=== PATIENT | male | born 1965 | race Caucasian/White ===

== ENCOUNTER 2020-05-19 08:04 | Emergency (ER) | payer OTHER, SELFPAY ==
[2020-05-19 08:19] VITALS: BP 158/90; PULSE 54; RESP 158; TEMP 37.1; O2SAT 97; BMI 28.5
[2020-05-19 08:31] VITALS: O2SAT 97
--- NOTE | 2020-05-19 09:05 | ED_ITS ---
HPI - URI/Sore Throat General Chief Complaint: Upper Respiratory Symptoms Stated Complaint: covid test symptoms [id number] Time Seen by Provider: 05/19/20 08:58 Source: patient Mode of arrival: ambulatory Limitations: no limitations History of Present Illness HPI Narrative: 54-year-old male with no significant past medical history presenting to ED for COVID-19 testing. Reports sore throat x3 days and subjective fever. Denies cough, chest pain, shortness of breath, chills, recent travel, COVID-19 exposure MD elicited complaint: fever ( subjective) Onset (ago): day(s) (3) Consistency: constant Severity: mild Associated symptoms: denies other symptoms Related Data Allergies Allergy/AdvReac Type Severity Reaction Status Date / Time penicillin V Allergy Unknown Verified 10/03/13 00:00 Penicillins [PCN] Allergy Unknown ANAPHYLAXIS Unverified 05/01/20 17:40 Review of Systems Review of Systems: Yes all other systems are reviewed and are negative Constitutional: Constitutional: Reports as per HPI, Denies body ache(s), Denies chills, Reports fever(s) (subjective) and Denies headache(s) Eyes: Eyes: Reports as per HPI ENT: Reports system reviewed and no additional complaints, except as documented, Reports as per HPI, Denies headache(s), Denies nose pain and Reports sore throat Cardiovascular: Cardiovascular: Reports as per HPI, Denies chest pain, Denies irregular heart rhythm and Denies dyspnea Respiratory: Respiratory: Reports as per HPI, Reports no additional respiratory complaints and Denies dyspnea Gastrointestinal: Gastrointestinal: Reports as per HPI Neurologic: Denies headache(s) [facility] Past Medical History Attestation statement: The following information was validated with the patient. Medical History (Updated 05/19/20 @ 09:17 by YULIANA Ch) Hypertension Social History Social History Smoking Status: Never smoker Advance Directives: No Advance Directives Information Provided: No Physical Exam Vital Signs and I&O and Narrative: Vital Signs and I&O: Vital Signs Temp 98.7 F 05/19/20 08:19 Pulse 54 05/19/20 08:19 Resp 158 H 05/19/20 08:19 BP 158/90 H 05/19/20 08:19 Pulse Ox 97 05/19/20 08:31 Intake & Output 05/18/20 05/19/2005/19/20 18:59 06:59 18:59 Weight 95.254 kg Body Mass Index 28.5 Const: General: cooperative and healthy appearing Nutritional Appearance: average body habitus Orientation/consciousness: patient oriented x3 Limitations: no limitations HENMT: Head: Yes normal to inspection General nose exam: Normal external nose present Face and sinus: Yes normal facial exam Mouth: Normal oral and palatal mucosa present, moist mucous membranes abnormal, no drooling and no muffled voice Throat: Yes posterior oropharynx normal, Yes uvula midline, No abnormal tonsil and No peritonsillar mass Eyes: General: appearance normal, both eyes and all related structures Neck: Neck: Yes normal visual inspection Resp: Effort & Inspection: normal respiratory effort and able to speak in complete sentences Neuro: General: patient oriented x3 MDM - URI/Sore Throat Differential Diagnosis Differential diagnosis: Likely upper respiratory infection and viral infection Medical Records Attestation: I reviewed the patient's medical records. Discharge Plan Discharge Clinical Impression: Pharyngitis, Upper respiratory infection Patient Disposition: Home, Self-Care Instructions: COVID-19 (Coronavirus Disease 2019) (ED), Cold Symptoms (ED) Additional Instructions: Based on your symptoms and history we have sent a COVID-19. Although your RESULT IS PENDING at this time. RESULTS should return within 72 hours. At this time you will be contacted with either NEGATIVE OR POSITIVE results. -Please wait until we contact you for your results. At this time you will be okay for discharge. Please plan for self quarantine for up to 14 days. Do not expose yourself to others. You may not go to work. If testing does come back negative you may return to activities as long as you are no longer having any symptoms for at least 3 days. Please continue to follow cold instructions and wash your hands frequently. You may take Tylenol as directed on the bottle for pain or fever. Patient seen in the emergency department on 02/08/2020 and should be excused from work until negative test results AND until 72 hours without any symptoms AND at least 10 days have passed since symptoms first appeared or since last exposure to COVID-19 positive patient CDC Guidelines for home isolation: - Stay away from others - WEAR A MASK if you are sick AND STAY HOME - Cover your mouth and nose with a tissue when you cough or sneeze. Dispose of tissues in a lined trash can and wash your hands immediately with soap and water for at least 20 seconds. If soap and water are not available, clean hands with alcohol-based hand client associate that contains at least 60% alcohol. - Clean your hands often with soap and water for at least 20 seconds - Avoid touching your eyes, nose and mouth with unwashed hands - Do not share dishes, drinking glasses, cups, eating utensils, towels, or bedding with other people in your home. After using these items, wash them thoroughly with soap and water or put in the small parts shaper operator. - Clean high-touch surfaces in your isolation area ( sick room and bathroom) ev yojana day; let a caregiver clean and disinfect high-touch surfaces in other areas of the home. Clean the area or item with soap and water or another detergent if it is dirty. Then, use a household disinfectant. - Limit contact with pets and animals: If you must care for a pet, wash your hands before and after interacting with themBased on your symptoms and history we have sent a COVID-19. Although your RESULT IS PENDING at this time. RESULTS should return within 72 hours. At this time you will be contacted with either NEGATIVE OR POSITIVE results. -Please wait until we contact you for your results. At this time you will be okay for discharge. Please plan for self quarantine for up to 14 days. Do not expose yourself to others. You may not go to work. If testing does come back negative you may return to activities as long as you are no longer having any symptoms for at least 3 days. Please continue to follow cold instructions and wash your hands frequently. You may take Tylenol as directed on the bottle for pain or fever. Patient seen in the emergency department on 02/08/2020 and should be excused from work until negative test results AND until 72 hours without any symptoms AND at least 10 days have passed since symptoms first appeared or since last exposure to COVID-19 positive patient CDC Guidelines for home isolation: - Stay away from others - WEAR A MASK if you are sick AND STAY HOME - Cover your mouth and nose with a tissue when you cough or sneeze. Dispose of tissues in a lined trash can and wash your hands immediately with soap and water for at least 20 seconds. If soap and water are not available, clean hands with alcohol-based hand client associate that contains at least 60% alcohol. - Clean your hands often with soap and water for at least 20 seconds - Avoid touching your eyes, nose and mouth with unwashed hands - Do not share dishes, drinking glasses, cups, eating utensils, towels, or bedding with other people in your home. After using these items, wash them thoroughly with soap and water or put in the small parts shaper operator. - Clean high-touch surfaces in your isolation area ( sick room and bathroom) every day; let a caregiver clean and disinfect high-touch surfaces in other areas of the home. Clean the area or item with soap and water or another detergent if it is dirty. Then, use a household disinfectant. - Limit contact with pets and animals: If you must care for a pet, wash your hands before and after interacting with them Stand Alone Forms: Work/School Release Print Language: Grenadian
== END 2020-05-19 09:27 | disposition home or self-care (01) ==
PROVIDERS: Physician Assistant; Emergency Provider Internal Medicine
DX: J02.9 Acute pharyngitis, unspecified (principal); Z20.828 Contact with and (suspected) exposure to other viral communicable diseases
CPT/HCPCS: 36415; 87071; 87635; 99283; 99284

== ENCOUNTER 2020-11-25 07:44 | Outpatient (REF) | payer OTHER, SELFPAY ==
[2020-11-25 08:30] LABS: COVID-19 Test Negative (Negative); IDNOW Serial# 55D5AD1C
== END 2020-11-25 07:45 | disposition home or self-care (01) ==
LOC: HO.LAB 07:44
PROVIDERS: Visit Provider Internal Medicine
DX: Z20.822 Contact with and (suspected) exposure to COVID-19 (principal)
CPT/HCPCS: 36415; 87635; C9803

== ENCOUNTER 2021-03-16 10:07 | Emergency (ER) | payer OTHER, SELFPAY ==
[2021-03-16 10:47] VITALS: BP 185/109; PULSE 50; RESP 18; TEMP 36.6; O2SAT 99; BMI 29.8
--- NOTE | 2021-03-16 12:41 | ED_ITS ---
HPI - Eye Problem General Chief complaint: Eye Problems Stated complaint: eye problems Time Seen by Provider: 03/16/21 12:17 Source: patient Mode of arrival: ambulatory Limitations: no limitations History of Present Illness MD chief complaint: eye pain, eye redness and eye injury Onset (ago): hour(s) (930am) Onset description: sudden Duration: constant Location: left eye Eye Symptoms: redness and foreign body sensation Place: work Mechanism: direct trauma (dry wall hit eye) Severity: mild If Pain, Quality: burning Context: trauma Associated symptoms: none Treatments Prior to Arrival: none Related Data Previous Rx's Medication Instructions Recorded erythromycin 5 mg/gram (0.5 %) eye 0.5 inch OPHTHALMIC (EYE) BID 7 03/16/21 ointment Days #3.5 g Allergies Allergy/AdvReac Type Severity Reaction Status Date / Time penicillin V Allergy Unknown Verified 10/03/13 00:00 Penicillins [PCN] Allergy Unknown ANAPHYLAXIS Unverified 05/01/20 17:40 Review of Systems Review of Systems: Constitutional : No Fever, No Chills, HEENT: L eye pain, L eye FB sensation Cardiovascular : No Chest Pain, No SOB Respiratory : No Dyspnea Gastrointestinal : No abdominal pain Musculoskeletal : No Joint Swelling Skin : No rash, noskin laceration Neuro : No Weakness, No Numbness PMFSH Past Medical History Attestation statement: The following information was validated with the patient. Medical History Hypertension Social History Social History (Updated 03/16/21 @ 12:45 by Genevieve Tejada DO) Patient Tobacco Use Status: Tobacco use Unknown Advance Directives: Yes Advance Directives Information Provided: Yes Advance Directives on File: No Physical Exam Vital Signs: Vital Signs: Last Vital Signs Temp 98 F 03/16/21 10:47 Pulse 50 03/16/21 10:47 Resp 18 03/16/21 10:47 BP 185/109 H 03/16/21 10:47 Pulse Ox 99 03/16/21 10:47 Body Mass Index 29.8 Appearance: Alert. Oriented X3. No acute distress. Eyes: Pupils equal, round and reactive to light. under fluorescein and maxwell lamp - inferior to iris oblong shaped abrasion noted 1cm ENT: Pharynx normal. Neck: Normal inspection. Neck supple. CVS: Normal heart rate and rhythm. Pulses normal. Respiratory: No respiratory distress. Breath sounds normal. Abdomen: Soft and non-tender. Skin: Skin warm and dry. Normal skin color. Normal skin turgor. Extremities: No lower extremity edema. No calf ttp Neuro: Oriented X 3. No motor deficit. No sensory deficit. MDM - Eye Problem MDM Narrative Medical decision making narrative: 55 yo male with L corneal abrasion no contact wearing no vision changes will apply ointment and refer to ophtho Discharge Plan Discharge Clinical Impression: Corneal abrasion Qualifiers: Encounter type: initial encounter Laterality: left Qualified Code(s): S05.02XA - Injury of conjunctiva and corneal abrasion without foreign body, left eye, in itial encounter Patient Disposition: Home, Self-Care Instructions: Corneal Abrasion (ED) Additional Instructions: return to ED for any worsening symptoms or concerns Prescriptions: New erythromycin 5 mg/gram (0.5 %) ointment 0.5 inch ophthalmic (eye) BID 7 Days Qty: 3.5 RF: 0 Referrals: Usman Ness [Physician] - 5 days (if not better) Stand Alone Forms: Work/School Release
[2021-03-16] MEDS: Fluorescein Sodium STRIP 1 STRIP EYE-LEFT (12:51)
[2021-03-16] MEDS: Tetracaine HCl/PF 0.5% Oph Sol 4 ML DROPS 3 DROP EYE-BOTH (12:51)
== END 2021-03-16 12:51 | disposition home or self-care (01) ==
PROVIDERS: Emergency Provider Emergency Medicine; PCP Physician Assistant Medical
DX: S05.02XA Injury of conjunctiva and corneal abrasion without foreign body, left eye, initial encounter (principal); W20.8XXA Other cause of strike by thrown, projected or falling object, initial encounter; Y93.89 Activity, other specified; Y92.9 Unspecified place or not applicable; Y99.0 Civilian activity done for income or pay
CPT/HCPCS: 99283

== ENCOUNTER 2023-08-22 09:25 | Emergency (ER) | payer OTHER, SELFPAY ==
--- NOTE | ~2023-08-22 | CT_ITS ---
EXAMINATION: CT ABDOMEN AND PELVIS WITHOUT CONTRAST CLINICAL INFORMATION: Abdominal pain, nausea vomiting and diarrhea. COMPARISON: None available. TECHNIQUE: Multidetector volumetric imaging was performed from the superior aspect of the liver through the pubic symphysis. Sagittal and coronal reformatted images were obtained on the technologist's workstation. This CT examination was performed using dose optimization techniques as appropriate, variously including the following: *Automated exposure control *Adjustment of mA and/or kV according to patient size (this includes techniques or standardized protocols for targeted exams where dose is matched to indication/reason for exam; i.e. extremities or head) *Use of iterative reconstruction technique DLP: 630 mGy-cm FINDINGS: LUNG BASES: The visualized lung bases are unremarkable. LIVER, GALLBLADDER, AND BILIARY TREE: The liver is normal in size, shape, and attenuation. No focal hepatic lesion or biliary ductal dilatation is present. The gallbladder is unremarkable with no evidence of radiopaque gallstones, gallbladder wall thickening, or obvious pericholecystic inflammatory changes. PANCREAS: Unremarkable. SPLEEN: Unremarkable. ADRENAL GLANDS: Unremarkable. KIDNEYS AND URETERS: The kidneys are normal in size, shape, and attenuation. No hydronephrosis, hydroureter, or calculi seen. No perinephric stranding. BLADDER: Unremarkable. GASTROINTESTINAL TRACT: The small and large bowel are unremarkable. The appendix is unremarkable. ABDOMINAL WALL: No significant hernia is appreciated. LYMPH NODES: Normal. VASCULAR: Unremarkable. PELVIC VISCERA: Unremarkable. OSSEOUS STRUCTURES: Unremarkable. CT/CT abdomen pelvis wo IV con IMPRESSION: Unremarkable noncontrast CT examination of the abdomen and pelvis. Fleischner guidelines were followed.
[2023-08-22 09:54] VITALS: BP 125/84; PULSE 87; RESP 18; TEMP 37.6; O2SAT 94; BMI 31.7
[2023-08-22 10:47] LABS: MANUAL DIFF FLAG NO
[2023-08-22 10:50] LABS: Basophils Percent Auto 0.3 % (0-2); Eosinophils Percent Auto 0.3 % (0-4); Hematocrit 47.2 % (42.0-52.0); Hemoglobin 15.8 g/dl (14.0-18.0); Imm Gran Abs Auto 0.02 X10*3/uL (0.00-0.03); Imm Gran Pct Auto 0.3 % (0.0-0.4); Lymphocytes Absolute Auto 1.1 X10*3/uL (1.2-4.9); Lymphocytes Percent Auto 16.2 % (20-40); Mean Corpuscular HGB Conc 33.5 g/dl (31.0-36.0); Mean Corpuscular Hemoglobin 28.7 pg (27.0-33.0); Mean Corpuscular Volume 85.8 fL (80.0-98.0); Mean Platelet Volume 11.5 fL (9.4-12.4); Monocytes Absolute Auto 0.8 X10*3/uL (0.1-1.2); Monocytes Percent Auto 11.6 % (2-11); Neutrophils Absolute Auto 4.8 x10*3/uL (2.0-8.3); Neutrophils Percent Auto 71.3 % (45-73); Platelet Count 181 X10*3/uL (160-400); Red Cell Distribution Width 12.8 % (11.0-16.0); White Blood Count 6.7 X10*3/uL (4.8-10.8)
[2023-08-22 16:48] LABS: Alanine Aminotransferase 27 U/L (0-40); Albumin Level 4.9 g/dL (3.5-5.0); Alkaline Phosphatase 78 U/L (39-117); Anion Gap 16 (12-20); Aspartate Amino Transferase 20 U/L (5-37); Bilirubin Direct 0.2 mg/dL (0.0-0.5); Bilirubin Total 0.6 mg/dL (0.0-1.0); Blood Urea Nitrogen 21 mg/dL (9-16); Carbon Dioxide 23 mmol/L (22-29); Chloride 103 mmol/L (96-108); Creatinine Clr Calc Pharmacy 66.3; Estimated Glomerular Filt Rate 48; Glucose Random 107 mg/dL (60-115); Potassium 4.6 mmol/L (3.3-5.1); Sodium 137 mmol/L (135-145); Total Protein 8.4 g/dL (6.5-8.0)
[2023-08-22 19:30] LABS: Lipase 10 U/L (8-78)
--- NOTE | 2023-08-22 19:47 | ED.ABDPAIN ---
HPI - Abdominal Pain General Chief Complaint: Abdominal Pain Stated Complaint: Abd pain Time Seen by Provider: 08/22/23 17:57 Source: patient Mode of arrival: ambulatory Limitations: no limitations History of Present Illness HPI narrative: patient is a 58-year-old male who presents emergency department for evaluation of diffuse lower abdominal pain described as a burning sensation and multiple episodes of liquid diarrhea. He states that as soon as he attempts to eat or drink something he is having diarrhea within the next 1/2 hour. He reports his symptoms started yesterday. Reports nausea and vomiting yesterday. Denies fevers, chills, URI symptoms, chest pain, shortness of breath, flank pain, genitourinary symptoms, numbness or tingling of the extremities. He does state that he has a history of a chronic stomach infection on record was not recall when this was or what type of infection it was. No hematochezia or melena. Denies recent antibiotic usage. Related Data Home Medications Medication Instructions Recorded Confirmed ascorbic acid (vitamin C) 500 mg 500 mg PO DAILY 08/22/23 08/22/23 tablet cholecalciferol (vitamin D3) 25 25 mcg PO DAILY 08/22/23 08/22/23 mcg (1,000 unit) capsule Previous Rx's Medication Instructions Recorded loperamide 2 mg capsule 2 mg PO Q4H PRN loose stool #14 08/22/23 (Anti-Diarrheal (loperamide)) caps ondansetron 4 mg disintegrating 4 mg PO Q8H PRN nausea and 08/22/23 tablet vomiting #10 tabs Allergies Allergy/AdvReac Type Severity Reaction Status Date / Time penicillin V Allergy Unknown Anaphylaxis Verified 08/22/23 09:59 Penicillins [PCN] Allergy Unknown ANAPHYLAXIS Verified 08/22/23 09:59 Review of Systems Review of Systems Yes all other systems are reviewed and are negative PMFSH Past Medical History Attestation statement: The following information was validated with the patient. Source: old records reviewed Onset Date is defined in the Problem List Problems that require an onset date and time if occurred within 24 hrs of arrival to the ED Aortic Dissection and Rupture; Neurologic impairment; Cardiopulmonary Arrest; Endotracheal Intubation; Insertion or Replacement of Mechanical Circulatory Assist Device Medical History Hypertension Social History Social History (Updated 03/16/21 @ 12:45 by Bethany Tejada DO) Patient Tobacco Use Status: Tobacco use Unknown Advance Directives: No Advance Directives Information Provided: No Physical Exam ED Vital Signs: Vital Signs - 24 hr 08/22/23 09:54 08/22/23 21:30 Temperature 99.7 F 98.3 F Pulse Rate 87 87 Respiratory Rate 18 19 Blood Pressure 125/84 128/88 Pulse Oximetry 94 97 Oxygen Delivery Method Room Air Room Air BMI result Body Mass Index 31.7 Appearance: Alert.?Oriented to person, place and time. No acute distress.?Normal affect. Eyes: Pupils equal, round and reactive to light.? ENT: Pharynx normal.?? Neck: Normal inspection.? Neck supple.?? CVS: Heart sounds normal. Normal heart rate and rhythm.? Pulses normal.?? Respiratory: No respiratory distress.? Lung sounds clear to auscultation bilaterally?? Abdomen: Soft With diffuse lower abdominal tenderness upon palpation. No rigidity. No guarding. No rebound tenderness. Negative Lee sign. No CVA tenderness. Normoactive bowel sounds. Skin: Skin warm and dry.? Normal skin color.? Normal skin turgor.?? Extremities: No lower extremity edema.? No calf ttp? Neuro: Moves all extremities spontaneously. Sensation intact bilaterally. Ambulates with normal steady gait. Course Reevaluation(s) Reevaluation #1: CBC reveals no leukocytosis or anemia. Lipase within normal limits. CMP with APOLINAR BUN 21 creatinine 1.52 I suspect that this is secondary to dehydration in the setting of volume loss with frequent loose stools , patient to receive 2L IV fluids, he is making urine, patient will require outpatient follow-up with primary care provider for further monitoring. CT of the abdomen and pelvis is unremarkable, No acute intra-abdominal abnormality. he is tolerating oral intake. At this time feel that he is stable for discharge home, suspect symptoms secondary to a gastroenteritis, encouraged IV fluids, Imodium, reviewed worrisome signs and symptoms that would warrant re-evaluation in the emergency department. All questions answered. Stable for discharge. Time: 20:24 Medical Decision Making Medical Decision Making MDM Narrative: patient is a 58-year-old male who presents emergency department for evaluation of diarrhea and abdominal pain as per HPI. At the time my examination he appears overall well, he is afebrile without tachycardia. He has diffuse lower abdominal tenderness upon palpation, no CVA tenderness. Will obtain CBC to evaluate for leukocytosis/ anemia, CMP and lipase to evaluate for abnormal electrolytes /abnormal renal function/ abnormal hepatic/biliary function, CT AP and Urinalysis. Differential Diagnosis Differential Diagnoses: The differential diagnosis associated with the presentation includes ( Diverticulitis, obstruction, appendicitis, genitourinary infection, Gastroenteritis) Admission/Observation Consideration of admission/observation: Escalation of care including admission/observation considered ( see narrative above and course narrative for further detail) Lab Data MDM Lab Attestation statement: I reviewed the patient's lab results. ( see course narrative) 08/22/23 10:39 08/22/23 16:22 Labs: Lab Results 08/22/23 08/22/23 08/22/23 Range/Units 10:39 16:22 19:30 WBC 6.7 (4.8-10.8) X10*3/uL RBC 5.50 (4.60-5.80) X10*6/uL Hgb 15.8 (14.0-18.0) g/dl Hct 47.2 (42.0-52.0) % MCV 85.8 (80.0-98.0) fL MCH 28.7 (27.0-33.0) pg MCHC 33.5 (31.0-36.0) g/dl RDW 12.8 (11.0-16.0) % Plt Count 181 (160-400) X10*3/uL MPV 11.5 (9.4-12.4) fL Immature Gran % (Auto) 0.3 (0.0-0.4) % Neut % (Auto) 71.3 (45-73) % Lymph % (Auto) 16.2 L (20-40) % [place] % (Auto) 11.6 H (2-11) % Eos % (Auto) 0.3 (0-4) % Baso % (Auto) 0.3 (0-2) % Lymph # (Auto) 1.1 L (1.2-4.9) X10*3/uL [place] # (Auto) 0.8 (0.1-1.2) X10*3/uL Eos # (Auto) 0.0 (0.0-0.4) X10*3/uL Baso # (Auto) 0.0 (0.0-0.2) X10*3/uL Abs Immat Gran (auto) 0.02 (0.00-0.03) X10*3/uL Absolute Neuts (auto) 4.8 (2.0-8.3) x10*3/uL Absolute Nucleated RBC 0.000 (0.0-0.012) X10*3/uL Nucleated RBC % (auto) 0.0 (0.0-0.2) /100WBC Sodium 137 (135-145) mmol/L Potassium 4.6 (3.3-5.1) mmol/L Chloride 103 (96-108) mmol/L Carbon Dioxide 23 (22-29) mmol/L Anion Gap 16 (12-20) BUN 21 H (9-16) mg/dL Creatinine 1.52 H (0.5-1.4) mg/dL Estim Creat Clear Calc 66.3 Estimated GFR 48 Random Glucose 107 (60-115) mg/dL Calcium 10.0 (8.4-10.2) mg/dL Total Bilirubin 0.6 (0.0-1.0) mg/dL Direct Bilirubin 0.2 (0.0-0.5) mg/dL AST 20 (5-37) U/L ALT 27 (0-40) U/L Alkaline Phosphatase 78 (39-117) U/L Total Protein 8.4 H (6.5-8.0) g/dL Albumin 4.9 (3.5-5.0) g/dL Lipase 10 (8-78) U/L Urine Color Urine Appearance Urine pH (5.0-9.0) Ur Specific [place] (1.005-1.025) Urine Protein (Neg-Trace) mg/dL Urine Glucose (UA) (Negative) mg/dL Urine Ketones (Negative) mg/dL Urine Blood (Negative) Urine Nitrite (Negative) Ur Leukocyte Esterase (Negative) COVID-19 ([facility]) Negative (Negative) COVID-19 Clin Com See Note Influenza Type A ([facility]) Negative (Negative) Influenza Type B ([facility]HAEL) Negative (Negative) Influenza A & B Note See Note 08/22/23 Range/Units 20:05 WBC (4.8-10.8) X10*3/uL RBC (4.60-5.80) X10*6/uL Hgb (14.0-18.0) g/dl Hct (42.0-52.0) % MCV (80.0-98.0) fL MCH (27.0-33.0) pg MCHC (31.0-36.0) g/dl RDW (11.0-16.0) % Plt Count (160-400) X10*3/uL MPV (9.4-12.4) fL Immature Gran % (Auto) (0.0-0.4) % Neut % (Auto) (45-73) % Lymph % (Auto) (20-40) % [place] % (Auto) (2-11) % Eos % (Auto) (0-4) % Baso % (Auto) (0-2) % Lymph # (Auto) (1.2-4.9) X10*3/uL [place] # (Auto) (0.1-1.2) X10*3/uL Eos # (Auto) (0.0-0.4) X10*3/uL Baso # (Auto) (0.0-0.2) X10*3/uL Abs Immat Gran (auto) (0.00-0.03) X10*3/uL Absolute Neuts (auto) (2.0-8.3) x10*3/uL Absolute Nucleated RBC (0.0-0.012) X10*3/uL Nucleated RBC % (auto) (0.0-0.2) /100WBC Sodium (135-145) mmol/L Potassium (3.3-5.1) mmol/L Chloride (96-108) mmol/L Carbon Dioxide (22-29) mmol/L Anion Gap (12-20) BUN (9-16) mg/dL Creatinine (0.5-1.4) mg/dL Estim Creat Clear Calc Estimated GFR Random Glucose (60-115) mg/dL Calcium (8.4-10.2) mg/dL Total Bilirubin (0.0-1.0) mg/dL Direct Bilirubin (0.0-0.5) mg/dL AST (5-37) U/L ALT (0-40) U/L Alkaline Phosphatase (39-117) U/L Total Protein (6.5-8.0) g/dL Albumin (3.5-5.0) g/dL Lipase (8-78) U/L Urine Color Yellow Urine Appearance Clear Urine pH 5.5 (5.0-9.0) Ur Specific [place] 1.025 (1.005-1.025) Urine Protein Trace (Neg-Trace) mg/dL Urine Glucose (UA) Negative (Negative) mg/dL Urine Ketones Negative (Negative) mg/dL Urine Blood Negative (Negative) Urine Nitrite Negative (Negative) Ur Leukocyte Esterase Negative (Negative) COVID-19 ([facility]) (Negative) COVID-19 Clin Com Influenza Type A ([facility]) (Negative) Influenza Type B ([facility]HAEL) (Negative) Influenza A & B Note Independent Interpretation I performed an independent interpretation of an: CT Scan Radiology Impression Discussion of test interpretation with radiology: I have reviewed the radiologist's reading. Radiologist Impression: CT/CT abdomen pelvis wo IV con IMPRESSION: Unremarkable noncontrast CT examination of the abdomen and pelvis. Fleischner guidelines were followed. Medications Administered Discontinued Medications Generic Name Dose Route Start Last Admin Trade Name Freq PRN Reason Stop Dose Admin Sodium Chloride 1,000 mls @ 999 mls/hr 08/22/23 19:15 08/22/23 20:17 Ns IV 08/22/23 20:15 999 mls/hr .Q1H1M GIOVANNI Administration Ondansetron HCl 4 mg 08/22/23 19:15 08/22/23 20:17 Ondansetron Hcl 4 Mg/2 Ml Vial IVPUSH 08/22/23 19:16 4 mg ONCE ONE Administration Discharge Plan Discharge Clinical Impression: Gastroenteritis Patient Disposition: Home, Self-Care Instructions: Acute Diarrhea (ED) Additional Instructions: Be sure to stay well hydrated and drink plenty of fluids throughout the day. Small frequent meals. CT Scan does not show any abnormality. As discussed your kidney function was slightly abnormal today this is likely due to the dehydration from your frequent episodes of diarrhea. You received IV fluids while in the emergency department. Contact your primary care provider to arrange for a follow-up visit within 3 days. Return back to emergency department any new or worsening symptoms or concerns. Prescriptions: New loperamide [Anti-Diarrheal (loperamide)] 2 mg capsule 2 mg PO Q4H PRN (Reason: loose stool) Qty: 14 0RF Rx Instructions: administer after each loose stool until symptoms controlled; do not exceed 8 mg per 24 hrs ondansetron 4 mg tablet,disintegrating 4 mg PO Q8H PRN (Reason: nausea and vomiting) Qty: 10 0RF No Action ascorbic acid (vitamin C) 500 mg Tablet 500 mg PO DAILY cholecalciferol (vitamin D3) 25 mcg (1,000 unit) Capsule 25 mcg PO DAILY Referrals: Physician,Unknown J [Primary Care Provider] -
--- NOTE | 2023-08-22 19:50 | PHA.MEDREC ---
Pharmacy Consult ? Medication Reconciliation Pharmacy has completed the medication reconciliation. Patient reported no medication at home right now. When asked about otc patient reports he takes vitamins. Oliva Harris, JackyD
[2023-08-22 20:15] LABS: Appearance Urine Clear; Color Urine Yellow; Glucose Urine UA Negative (Negative); Leukocyte Esterase Urine Negative (Negative); Nitrite Urine Negative (Negative); PH 5.5 (5.0-9.0); Specific Gravity - Urine 1.025 (1.005-1.025); Urine Blood Negative (Negative); Urine Ketones Negative (Negative); Urine Protein Trace mg/dL (Neg-Trace)
[2023-08-22] MEDS: 0.9 % Sodium Chloride 1,000 ML 999 ML IV (20:17)
[2023-08-22] MEDS: ondansetron HCL 4 MG/2 ML VIAL IVPUSH (20:17)
[2023-08-22 20:18] LABS: COVID-19 Test Negative (Negative); IDNOW Serial# 08D9AD1C; IDNOW Serial# 9DB6401D; Influenza A Negative (Negative); Influenza B2 Negative (Negative)
[2023-08-22 21:30] VITALS: BP 128/88; PULSE 87; RESP 19; TEMP 36.8; O2SAT 97
== END 2023-08-23 23:40 | disposition home or self-care (01) ==
PROVIDERS: Emergency Medicine; Nurse Practitioner Family; Emergency Provider Internal Medicine
DX: K52.9 Noninfective gastroenteritis and colitis, unspecified (principal); R10.30 Lower abdominal pain, unspecified; Z79.899 Other long term (current) drug therapy; Z11.52 Encounter for screening for COVID-19; Z20.822 Contact with and (suspected) exposure to COVID-19
CPT/HCPCS: 36415; 74176; 80048; 80076; 81003; 83690; 85025; 87502; 87635; 96374; 99283; 99284; J2405

== ENCOUNTER 2025-06-12 06:15 | Emergency (ER) | payer OTHER, SELFPAY ==
--- NOTE | ~2025-06-12 | CT_ITS ---
EXAMINATION: CT ABDOMEN PELVIS WITH IV CONTRAST HISTORY: Abdominal pain diffuse COMPARISON: CT of the abdomen and pelvis most recent August 2023 TECHNIQUE: CT scan of the abdomen and pelvis was performed following administration of 85 mL Omnipaque 350 using standard departmental protocol. Coronal and sagittal reformatted images were generated and reviewed. This CT exam was performed with one or more of the following dose reduction techniques: automated exposure control, adjustment of the mA and/or kV according to patient size, use of iterative reconstruction technique. DLP: 639 mGy-cm FINDINGS: LOWER CHEST: The visualized lung bases are clear. There is no pleural effusion. CARDIOVASCULATURE: The heart is normal in size. There is no pericardial effusion. LIVER: The liver is normal in size and contour. No liver mass is identified. The hepatic and portal veins are patent. GALLBLADDER / BILE DUCTS: The gallbladder is unremarkable. There is no intra or extrahepatic biliary ductal dilatation. SPLEEN: The spleen is normal in size. No focal splenic lesion is identified. PANCREAS: The pancreas is unremarkable in appearance. ADRENAL GLANDS: Within normal limits. KIDNEYS/RETROPERITONEUM: No renal calculi are identified. There is no hydronephrosis. No renal masses are identified. LYMPH NODES: No abdominal or pelvic lymphadenopathy. VASCULATURE: The abdominal aorta is normal in caliber. MESENTERY/PERITONEUM: No free fluid. No masses. There is no free intraperitoneal gas. STOMACH: Normal SMALL BOWEL: The small bowel is normal in caliber. There are a small bowel diverticuli. No evidence of diverticulitis. COLON: The colon is unremarkable. APPENDIX: Normal. URINARY BLADDER/PELVIC ORGANS: The urinary bladder is under distended. It is difficult to exclude mild circumferential matter wall thickening/cystitis. No stone or mass. Normal-sized prostate gland. BONES / SOFT TISSUES: No suspicious bony or soft tissue abnormalities. Degenerative changes at the hips. Stable L1 vertebral body lucent lesion with vertical striations probably representing a benign hemangioma. Small left inguinal umbilical hernias containing fat. CT/CT abdomen pelvis w IV con IMPRESSION: No acute findings. Underdistended bladder. Difficult to exclude mild circumferential wall thickening of the bladder/cystitis. Multiple small bowel diverticuli. No evidence of diverticulitis. Small umbilical and left inguinal hernias containing fat. Electronically signed by: Zoe Farr MD 06/12/2025 08:17 AM EDT RP
[2025-06-12 06:26] VITALS: BP 174/88; PULSE 67; RESP 18; TEMP 36.4; O2SAT 94; BMI 32.2
[2025-06-12 06:41] LABS: MANUAL DIFF FLAG NO
--- NOTE | 2025-06-12 06:42 | ED.ABDPAIN ---
HPI - Abdominal Pain General Chief Complaint: Abdominal Pain Stated Complaint: stomach pain Time Seen by Provider: 06/12/25 06:33 Source: patient Mode of arrival: ambulatory Limitations: no limitations History of Present Illness HPI narrative: This is a 59 years old the patient with no significant past medical history presented to the emergency department with a chief complaint of abdominal cramps change in color of the stools described as mashed potatoes , denies any fever chills , vomiting the yesterday x1 MD elicited complaint: abdominal pain Pertinent past history: other Onset (ago): month(s) (3) Pain Consistency: constant Location: diffuse Severity: mild Quality: cramping Radiation: none Migration to: no migration Exacerbating factors: nothing Relieving factors: nothing Related Data Home Medications ?Medication ?Instructions ?Recorded ?Confirmed ascorbic acid (vitamin C) 500 mg 500 mg PO DAILY 08/22/23 08/22/23 tablet cholecalciferol (vitamin D3) 25 25 mcg PO DAILY 08/22/23 08/22/23 mcg (1,000 unit) capsule Previous Rx's ?Medication ?Instructions ?Recorded loperamide 2 mg capsule 2 mg PO Q4H PRN loose stool #14 08/22/23 (Anti-Diarrheal (loperamide)) caps ondansetron 4 mg disintegrating 4 mg PO Q8H PRN nausea and 08/22/23 tablet vomiting #10 tabs Allergies Allergy/AdvReac Type Severity Reaction Status Date / Time penicillin V Allergy Unknown Anaphylaxis Verified 06/12/25 06:29 Penicillins (PCN) Allergy Unknown ANAPHYLAXIS Verified 06/12/25 06:29 Review of Systems Constitutional: Reports no additional constitutional complaints Reports system reviewed and no additional complaints, except as documented [facility] Past Medical History [facility] Narrative: Hypertension Medical History Hypertension Social History Social History Patient Tobacco Use Status: Tobacco use Unknown Smoked in Last 30 Days: No Use of substances other than those prescribed or required for medical reasons: No Advance Directives: No Advance Directives Information Provided: Yes Physical Exam ED Exam Exam: No acute distress looks well Vital Signs: Vital Signs - 24 hr 06/12/25 06:26 06/12/25 08:00 Temperature 97.5 F Pulse Rate 67 72 Respiratory Rate 18 20 Blood Pressure 174/88 H 172/86 H Pulse Oximetry 94 98 Oxygen Delivery Method Room Air Room Air BMI result Body Mass Index 32.2 Const General: cooperative Nutritional Appearance: average body habitus Orientation/consciousness: patient oriented x3 Limitations: no limitations HENMT Head: Yes normal to inspection Ears: hearing grossly normal bilaterally General nose exam: Normal external nose present Face and sinus: Yes normal facial exam Neck Neck: Yes normal visual inspection and Yes full ROM Chest Chest palpation & inspection: normal inspection of the chest Resp Effort & Inspection: normal respiratory effort Auscultation: clear to auscultation bilaterally Cardio Jugular venous distension: no JVD Rate: regular rate Rhythm: regular rhythm GI Inspection: Yes normal to inspection Palpation (GI): Soft to palpation, not firm and nontender Skin General skin exam: no rashes or lesions noted Lesions: no lesions Neuro General: patient oriented x3 Cranial nerves: Yes CN's II-XII intact bilaterally Course Reevaluation(s) Reevaluation #1: Workup completed labs okay CT abdomen and pelvis negative anticipate discharge Time: 08:48 Medical Decision Making Medical Decision Making [facility] Narrative: Patient is here with abdominal cramp changing color in the stools we will get imaging we will get labs 08:49 workup negative labs okay CT negative the patient is pacing in the room in not acute distress anticipate discharge likely viral syndrome Differential Diagnosis Differential Diagnoses: The differential diagnosis associated with the presentation includes Colitis/diverticulitis/pancreatic insufficiency Admission/Observation Consideration of admission/observation: Escalation of care including admission/observation considered Lab Data [facility] Lab Attestation statement: I reviewed the patient's lab results. 06/12/25 06:34 06/12/25 06:34 Labs: Lab Results 06/12/25 06/12/25 06/12/25 Range/Units 06:34 07:20 07:22 WBC 5.8 (4.8-10.8) X10*3/uL RBC 4.95 (4.60-5.80) X10*6/uL Hgb 13.9 L (14.0-18.0) g/dl Hct 42.1 (42.0-52.0) % MCV 85.1 (80.0-98.0) fL MCH 28.1 (27.0-33.0) pg MCHC 33.0 (31.0-36.0) g/dl RDW 12.6 (11.0-16.0) % Plt Count 161 (160-400) X10*3/uL MPV 11.5 (9.4-12.4) fL Immature Gran % (Auto) 0.2 (0.0-0.4) % Neut % (Auto) 51.2 (45-73) % Lymph % (Auto) 38.0 (20-40) % [place] % (Auto) 8.6 (2-11) % Eos % (Auto) 1.5 (0-4) % Baso % (Auto) 0.5 (0-2) % Lymph # (Auto) 2.2 (1.2-4.9) X10*3/uL [place] # (Auto) 0.5 (0.1-1.2) X10*3/uL Eos # (Auto) 0.1 (0.0-0.4) X10*3/uL Baso # (Auto) 0.0 (0.0-0.2) X10*3/uL Abs Immat Gran (auto) 0.01 (0.00-0.03) X10*3/uL Absolute Neuts (auto) 3.0 (2.0-8.3) x10*3/uL Absolute Nucleated RBC 0.000 (0.0-0.012) X10*3/uL Nucleated RBC % (auto) 0.0 (0.0-0.2) /100WBC Sodium 143 (135-145) mmol/L Potassium 4.2 (3.3-5.1) mmol/L Chloride 107 (96-108) mmol/L Carbon Dioxide 26 (22-29) mmol/L Anion Gap 14 (12-20) BUN 20 H (9-16) mg/dL Creatinine 1.09 (0.5-1.4) mg/dL Estim Creat Clear Calc 92.0 Estimated GFR > 60 Random Glucose 178 H (60-115) mg/dL Calcium 8.9 D (8.4-10.2) mg/dL Total Bilirubin 0.5 (0.0-1.0) mg/dL AST 25 (5-37) U/L ALT 26 (0-40) U/L Alkaline Phosphatase 94 (39-117) U/L Total Protein 6.6 (6.5-8.0) g/dL Albumin 4.2 (3.5-5.0) g/dL Stool Occult Blood NEGATIVE (NEGATIVE) Stool Leukocytes, Qual NEGATIVE (NEGATIVE) Independent Interpretation I performed an independent interpretation of an: CT Scan Radiology Impression Discussion of test interpretation with radiology: I have reviewed the radiologist's reading. Radiologist Impression: Not acute disease Medications Administered Discontinued Medications Generic Name Dose Route Start Last Admin Trade Name Freq PRN Reason Stop Dose Admin Iohexol 85 ml 06/12/25 07:35 06/12/25 07:36 Iohexol 350 Mg/Ml 100 Ml Infus..Btl IV 06/12/25 07:36 85 ml ONCE ONE Administration Discharge Plan Discharge Clinical Impression: Abdominal pain Patient Disposition: Home, Self-Care Instructions: Abdominal Pain (ED) Prescriptions: No Action ascorbic acid (vitamin C) 500 mg Tablet 500 mg PO DAILY cholecalciferol (vitamin D3) 25 mcg (1,000 unit) Capsule 25 mcg PO DAILY loperamide [Anti-Diarrheal (loperamide)] 2 mg capsule 2 mg PO Q4H PRN (Reason: loose stool) Qty: 14 0RF Rx Instructions: administer after each loose stool until symptoms controlled; do not exceed 8 mg per 24 hrs ondansetron 4 mg tablet,disintegrating 4 mg PO Q8H PRN (Reason: nausea and vomiting) Qty: 10 0RF Stand Alone Forms: Work/School Release Print Language: Brazilian
[2025-06-12 06:43] LABS: Hematocrit 42.1 % (42.0-52.0); Hemoglobin 13.9 g/dl (14.0-18.0); Imm Gran Abs Auto 0.01 X10*3/uL (0.00-0.03); Imm Gran Pct Auto 0.2 % (0.0-0.4); Lymphocytes Absolute Auto 2.2 X10*3/uL (1.2-4.9); Mean Corpuscular HGB Conc 33.0 g/dl (31.0-36.0); Mean Corpuscular Hemoglobin 28.1 pg (27.0-33.0); Mean Corpuscular Volume 85.1 fL (80.0-98.0); NRBC Abs Auto 0.000 X10*3/uL (0.0-0.012); NRBC Pct Auto 0.0 /100WBC (0.0-0.2); Platelet Count 161 X10*3/uL (160-400); Red Blood Count 4.95 X10*6/uL (4.60-5.80); White Blood Count 5.8 X10*3/uL (4.8-10.8)
--- OUTSIDE RECORDS SUMMARY | 2025-06-12 06:45 | XMS_ITS | Clinical Summary ---
Author Organization [address] Address [address] [place] [phone] Phone Care Team Providers Care Stogy Roller Name Role Phone Rahul Peacock MD Primary Care Provider [phone] Allergies Active Allergy Reactions Criticality Noted Date Comments Penicillins Anaphylaxis High 03/25/2014 Medications acetaminophen (TYLENOL 8 HOUR) 650 mg 8 hr tablet Take 1 tablet (650 mg total) by mouth 3 (three) times a day if needed. 4 Active cyanocobalamin (VITAMIN B-12) 1,000 mcg tablet Take 1 tablet (1,000 mcg total) by mouth 3 (three) times a week. 4 Active cholecalcifero l (VITAMIN D-3) 50 mcg (2,000 unit) tablet Take 1 tablet (2,000 Units total) by mouth 3 (three) times a week. 4 Active celecoxib (CeleBREX) 100 mg capsule TAKE ONE CAPSULE BY MOUTH TWICE A DAY NEEDED FOR PAIN 60 capsule 2 5 Active gabapentin (NEURONTIN) 100 mg capsule Take 1 capsule (100 mg total) by mouth See administration instructions. Sig - Route: Take 1 cap in AM and 2 Capsules by mouth at bedtime. 90 capsule 5 5 Active lisinopriL (PRINIVIL,ZEST RIL) 20 mg tablet Take 1 tablet (20 mg total) by mouth 1 (one) time each day. 90 each 1 5 025 Active metFORMIN XR (GLUCOPHAGE-XR ) 500 mg 24 hr tablet Take 1 tablet (500 mg total) by mouth 1 (one) time each day. Do not crush, chew, or split. 90 tablet 1 5 Active tadalafiL (CIALIS) 10 mg tablet TAKE 1 TABLET BY MOUTH 1/2 HOUR BEFORE INTERCOURSE 12 tablet 2 5 Active Active Problems Problem Noted Date Diagnosed Date Stage 2 chronic kidney disease 12/23/2024 Osteoarthritis of both knees 12/23/2024 Mixed hyperlipidemia 12/23/2024 Atrophic testicle 05/18/2024 GERD (gastroesophageal reflux disease) 4 Phimosis 05/18/2024 Type 2 diabetes mellitus wit hout complication, without long-term current use of insulin ([facility] V24, [facility] V28) 11/14/2023 B12 deficiency 06/15/2023 Osteoarthritis of both hands 06/15/2023 Vitamin D deficiency 06/15/2023 Hydrocele 04/20/2023 Overview (05/18/2024): <3cm in left testis. Follows up with [facility]. Observation for now, follow up in 1 year. Prediabetes 10/21/2022 Essential hypertension 06/06/2020 Dyslipidemia 12/29/2017 Immunizations Immunization Administration Dates Next Due Tdap Tetanus diptheria acell ular pertussis (Boostrix; Adacel) 7yo and older 03/25/2014 Surgical History Surgery Date Site/Laterality Comments CIRCUMCISION, PRIMARY PROCEDURE: HISTORICAL CIRCUMCISION Medical History Medical History Date Comments Atrophic testicle DX:Atrophic te sticle Phimosis DX:Phimosis GERD (gastroesophageal reflux disease) DX:GERD (gastroesophageal reflux disease) GERD (gastroesophageal reflux disease) DX:GERD (gastroesophageal reflux disease) Mixed hyperlipidemia DX:Mixed hy perlipidemia Hydrocele DX:Hydrocele; CO MMENT: <3cm in left testis. Follows up with [facility]. Observation for now, follow up in 1 year. Essential (primary) hypertension DX:Essential (primary) hypertension Osteoarthritis DX:Osteoarthriti s Family History Medical History Relation Name Comments Other cancer Aunt unsure what typ e Hypertension Maternal Grandmother Other cancer Other cousin w cancer , not sure what type Blindness Neg Hx Cataracts Neg Hx Glaucoma Neg Hx Macular degeneration Neg Hx Strabismus Neg Hx Relation Name Status Comments Aunt Maternal Grandmother Other Social History Tobacco Use Types Packs/Day Years Used Date Smoking Tobacco: Former Smokeless Tobacco: Never Alcohol Use Standard Drinks/Week Comments Yes 0 (1 standard drink = 0.6 oz pur e alcohol) Sex and Gender Information Value Date Recorded Sex Assigned at Not on file Legal Sex Male 5:06 AM EST Gender Identity Not on file Sexual Orientation Not on file Obstetrics History Last Filed Vital Signs Vital Sign Reading Time Taken Comments Blood Pressure 122/78 12/24/2024 3:47 PM EDT Pulse 60 12/24/2024 3:47 PM EDT Temperature 36.8 C (98.2 F) 12/24/2024 3:47 PM EDT Respiratory Rate 16 12/24/2024 3:47 PM EDT Oxygen Saturation - - Inhaled Oxygen Concentration - - Weight 109 kg (241 lb) 12/24/2024 3:47 PM EDT Height 180.3 cm (5' 11 ) 12/24/2024 3:47 PM EDT Body Mass Index 33.61 12/24/2024 3:47 PM EDT Plan of Treatment Health Maintenance Due Date Last Done Comments COVID-19 Vaccine (#1) 1972 Hepatitis B Vaccines (1 of 3 - 19+ 3-dose series) 1986 Pneumococcal Vaccine: 50+ Years (1 of 2 - PCV) 1986 Zoster Vaccines (1 of 2) 1986 Social Influencers of Health Screening 07/24/2022 DTaP,Tdap,and Td Vaccines (2 - Td or Tdap) 03/25/2024 03/25/2014 Depression Screening 08/15/2024 Diabetes: Annual Urine Albumin-Creatinine Ratio (uACR) 11/13/2024 11/14/2023 Diabetes: Annual Foot Exam 11/13/2024 11/14/2023 Influenza Vaccine (#1) 2025 Diabetes: Annual Retina Eye Exam 04/17/2025 04/17/2024 Diabetes: Blood Sugar Contro l Test (HGBA1C) 06/27/2025 12/25/2024, 06/15/2024, 11/14/2023 Diabetes: Annual GFR (Glomerular Filtration Rate) 12/25/2025 12/25/2024, 06/15/2024, 11/14/2023 Hypertension/CHF/CAD Annual BMP Blood Test 12/25/2025 12/25/2024, 06/15/2024, 11/14/2023 Cholesterol Screening (Lipid Panel) 12/25/2029 12/25/2024, 06/15/2024, 05/04/2022 Colorectal Cancer Screening: Colonoscopy 12/06/2032 12/06/2022 RSV Immunization Adult Patients (1 - 1-dose 75+ series) 2042 Hepatitis C Screening Completed 04/20/2015 HIV Screening Completed 10/20/2022 HIB Vaccines Aged Out No longer eligi ble based on patient's age to complete this topic HPV Vaccines Aged Out No longer eligi ble based on patient's age to complete this topic Hepatitis A Vaccines Aged Out No long er eligible based on patient's age to complete this topic IPV Vaccines Aged Out No longer eligi ble based on patient's age to complete this topic MMR Vaccines Aged Out No longer eligi ble based on patient's age to complete this topic Meningococcal ACWY Vaccine Aged Out N o longer eligible based on patient's age to complete this topic Meningococcal B Vaccine Aged Out No l onger eligible based on patient's age to complete this topic RSV Immunization Patients Under 20 months Aged Out No longer eligible b ased on patient's age to complete this topic Varicella Vaccines Aged Out No longer eligible based on patient's age to complete this topic Procedures Procedure Name Priority Date/Time Associated Diagnosis Comments BASIC METABOLIC PANEL Routine 12/25/2024 7:47 AM EDT Stage 2 chronic kidney disease HEMOGLOBIN A1C Routine 12/25/2024 7:47 AM EDT Prediabetes LIPID PANEL WITH REFLEX TO DIRECT LDL Routine 12/25/2024 7:47 AM EDT Mixed hyperlipidemia DIABETES EYE EXAM Routine 04/17/2024 URINE ALBUMIN CREATININE RATIO Routine 11/14/2023 DIABETES FOOT EXAM Routine 11/14/2023 COLONOSCOPY Routine 12/06/2022 HIV SCREENING Routine 10/20/2022 HEPATITIS C SCREENING Routine 04/20/2015 from Last 3 Months or Most Recently Relevant to Health Maintenance Results * (ABNORMAL) Lipid panel with reflex to direct LDL (12/25/2024 7:47 AM EDT) Cholesterol 187 0 - 200 mg/dL LAB CHEMISTRY METHOD 12/25/2024 2:27 PM EDT [facility] Triglycerides 106 0 - 150 mg/dL LAB CHEMISTRY METHOD 12/25/2024 2:27 PM EDT [facility] HDL 46 >=40 mg/dL LAB CHEMISTRY METHOD 12/25/2024 2:27 PM EDT [facility] LDL Calculated 120(H) 0 - 100 mg/dL LAB CHEMISTRY METHOD 12/25/2024 2:27 PM EDT [facility] VLDL Cholesterol [place] 21.2 mg/dL LAB CHEMISTRY METHOD 12/25/2024 2:27 PM EDT [facility] Non HDL Chol. (LDL+VLDL) 141 <145 mg/dL LAB CHEMISTRY METHOD 12/25/2024 2:27 PM EDT [facility] Chol/HDL Ratio 4.1 0.0 - 4.4 LAB CHEMISTRY METHOD 12/25/2024 2:27 PM EDT [facility] Blood Venous blood specimen / Unknown Venipuncture / Unknown 12/25/2024 7:47 AM EDT 12/25/2024 7:47 AM EDT us Rahul Peacock MD LAB BLOOD ORDERABLES Final Result [facility] [address] [place] [address], * Hemoglobin A1c (12/25/2024 7:47 AM EDT) Hemoglobin A1C 6.3 <6.5 % LAB CHEMISTRY METHOD 12/25/2024 1:53 PM EDT [facility] Mean Bld Glu Estim. 134 mg/dL LAB CHEMISTRY METHOD 12/25/2024 1:53 PM [facility] Blood Venous blood specimen / Unknown Venipuncture / Unknown 12/25/2024 7:47 AM EDT 12/25/2024 7:47 AM EDT us Rahul Peacock MD LAB BLOOD ORDERABLES Final Result [facility] [address] [place] [address], [place] [phone] * (ABNORMAL) Basic metabolic panel (12/25/2024 7:47 AM EDT) Sodium 142 133 - 145 mmol/L LAB CHEMISTRY METHOD 12/25/2024 2:27 PM [facility] Potassium 4.6 3.5 - 5.5 mmol/L LAB CHEMISTRY METHOD 12/25/2024 2:27 PM [facility] Chloride 107 96 - 110 mmol/L LAB CHEMISTRY METHOD 12/25/2024 2:27 PM [facility] CO2 29 21 - 32 mmol/L LAB CHEMISTRY METHOD 12/25/2024 2:27 PM [facility] Anion Gap 6 3 - 11 LAB CHEMISTRY METHOD 12/25/2024 2:27 PM [facility] Glucose 105(H) 70 - 100 mg/dL LAB CHEMISTRY METHOD 12/25/2024 2:27 PM [facility] BUN 13 5 - 25 mg/dL LAB CHEMISTRY METHOD 12/25/2024 2:27 PM [facility] Creatinine 1.06 0.70 - 1.30 mg/dL LAB CHEMISTRY METHOD 12/25/2024 2:27 PM [facility] eGFR 82 >=60 mL/min/1. 73m2 LAB CHEMISTRY METHOD 12/25/2024 2:27 PM EDT [facility] Comment:Calculation based on the Chronic Kidney Disease Epidemiology Collaboration (CKD-EPI) equation refit without adjustment for race. BUN/Creatinine Ratio 12.3 LAB CHEMISTRY METHOD 12/25/2024 2:27 PM EDT [facility] Calcium 9.1 8.5 - 10.5 mg/dL LAB CHEMISTRY METHOD 12/25/2024 2:27 PM EDT [facility] Blood Venous blood specimen / Unknown Venipuncture / Unknown 12/25/2024 7:47 AM EDT 12/25/2024 7:47 AM EDT Result [facility] Rahul Peacock MD LAB BLOOD ORDERABLES Final Result [facility] [address] [place] [address], * Diabetes Eye Exam (04/17/2024) [facility] Diabetes: Annual Retina Eye Exam abstracted [facility] Provider HEALTH MAINTENANCE Final Result * Urine Albumin Creatinine Ratio (11/14/2023) [facility] Urine Albumin Creatinine Ratio abstracted [facility] Provider HEALTH MAINTENANCE Final Result * Diabetes Foot Exam (11/14/2023) [facility] Diabetes: Annual Foot Exam abstracted Result [facility] Historical Provider HEALTH MAINTENANCE Final Result * Colonoscopy (12/06/2022) [facility] Colonoscopy normal, abstracted Anatomical Region Laterality Modality Other Result [facility] Provider HEALTH MAINTENANCE Final Result * HIV Screening (10/20/2022) [facility] HIV Screening abstracted Result [facility] Provider HEALTH MAINTENANCE Final Result * Hepatitis C Screening (04/20/2015) [facility] Hepatitis C Screening abstracted us Historical Provider HEALTH MAINTENANCE Final Result from Last 3 Months or Most Recently Relevant to Health Maintenance Care Teams Stogy Roller Relationship Specialty Start Date End Date Rahul Peacock MD [address] [place] [address] PCP - General Internal Medicine 12/28/21
[2025-06-12 06:55] LABS: Alanine Aminotransferase 26 U/L (0-40); Albumin Level 4.2 g/dL (3.5-5.0); Alkaline Phosphatase 94 U/L (39-117); Anion Gap 14 (12-20); Aspartate Amino Transferase 25 U/L (5-37); Blood Urea Nitrogen 20 mg/dL (9-16); Calcium 8.9 mg/dL (8.4-10.2); Carbon Dioxide 26 mmol/L (22-29); Chloride 107 mmol/L (96-108); Creatinine Clr Calc Pharmacy 92.0; Estimated Glomerular Filt Rate > 60; Potassium 4.2 mmol/L (3.3-5.1); Sodium 143 mmol/L (135-145); Total Protein 6.6 g/dL (6.5-8.0)
[2025-06-12 07:29] LABS: OBS Int Ctl Valid YES; OBS1 NEGATIVE (NEGATIVE)
[2025-06-12] MEDS: iohexoL 350 MG/ML 100 ML INFUS..BTL 85 ML IV (07:36)
[2025-06-12 08:00] VITALS: BP 172/86; PULSE 72; RESP 20; O2SAT 98
[2025-06-12 08:21] LABS: Leukocytes Stool Qualitative NEGATIVE (NEGATIVE)
[2025-06-12 09:14] VITALS: BP 172/86; PULSE 72; RESP 20; TEMP 36.7; O2SAT 98
[2025-06-12 10:43] LABS: E. coli EAEC Not Detected (Not Detect.); E. coli EPEC Not Detected (Not Detect.); E. coli ETEC Not Detected (Not Detect.); E. coli STEC Not Detected (Not Detect.); Shigella sp./EIEC Not Detected (Not Detect.)
== END 2025-06-12 09:14 | disposition home or self-care (01) ==
PROVIDERS: Emergency Provider Emergency Medicine
DX: R10.9 Unspecified abdominal pain (principal); R11.10 Vomiting, unspecified; R19.5 Other fecal abnormalities
CPT/HCPCS: 36415; 74177; 80053; 82272; 85025; 87507; 89055; 99284; Q9967

== ENCOUNTER → 2025-06-12 06:46 | Outpatient (BNV) | payer SELFPAY | PROVIDERS: Emergency Provider Emergency Medicine; Visit Provider Radiology Diagnostic Radiology | DX: N32.89 Other specified disorders of bladder (principal) | CPT/HCPCS: 74177 ==